=== PATIENT | male | born 1985 | race Hispanic/Latino ===

== ENCOUNTER 2020-09-30 09:46 | Day surgery (SDC) | payer SELFPAY ==
[2020-09-27 14:07] LABS: BASOPHILS % (AUTO) 0.6 % (0.0-5.0); EOSINOPHILS % (AUTO) 3.2 % (0.0-8.0); HEMATOCRIT 45.3 % (42-54); LYMPHOCYTES % (AUTO) 37.5 % (21.0-51.0); MEAN CORPUSCULAR HEMOGLOBIN 30.4 pg (27.0-33.0); MEAN CORPUSCULAR HGB CONC 33.1 g/dL (32.0-36.0); MEAN CORPUSCULAR VOLUME 91.9 fL (79-99); PLATELET COUNT (AUTO) 257 K/uL (130-400); RED BLOOD CELL COUNT(AUTO) 4.93 MIL/uL (4.50-6.20); RED CELL DISTRIBUTION WIDTH 12.3 % (11.0-15.5); WHITE BLOOD COUNT (AUTO) 6.8 K/uL (4.8-10.8)
[2020-09-27 14:09] LABS: CREATININE 0.7 mg/dL (0.5-1.5); POTASSIUM 4.5 mmol/L (3.5-5.1)
[2020-09-29 09:31] VITALS: BP 115/74
[2020-09-30] VITALS (16 sets, daily range): BP systolic 100–118; BP diastolic 61–76
[~2020-09-30] VITALS: Ht 162.6 cm; Wt 80.5 kg
[2020-09-30] MEDS ORDERED: CEFAZOLIN SODIUM 1 GM VIAL ONE (10:23)
[2020-09-30] MEDS: CEFAZOLIN SODIUM 1 GM VIAL IVP ONE ×2 (10:52→12:35)
[2020-09-30] MEDS: LACTATED RINGERS 1000ML 1,000 ML IV SCH ×3 (10:53→14:05)
[2020-09-30] MEDS ORDERED: SUCCINYLCHOLINE CHLORIDE 20 MG/ML 10 ML VIAL ONE (11:42)
[2020-09-30] MEDS ORDERED: DEXAMETHASONE SOD PHOSPHATE 4 MG/ML 1ML VIAL ONE (11:42)
[2020-09-30] MEDS ORDERED: LIDOCAINE PF 100MG/5ML (2%) SYRINGE 5ML ONE (11:42)
[2020-09-30] MEDS ORDERED: ONDANSETRON 4MG INJ ONE (11:43)
[2020-09-30] MEDS ORDERED: ROCURONIUM 10MG/1ML SYR 10 MG/ML ML ONE (11:43)
[2020-09-30] MEDS ORDERED: PROPOFOL 10 MG/ML 20ML VIAL IV ONE (11:43)
[2020-09-30] MEDS ORDERED: MIDAZOLAM HCL 1 MG/ML 2ML VIAL ONE (11:44)
[2020-09-30] MEDS ORDERED: ROPIVACAINE 0.5% 5MG/ML 30ML IJ ONE (11:46)
[2020-09-30] MEDS ORDERED: FENTANYL CITRATE PF 50 MCG/1 ML 2ML VIAL ONE (12:35)
[2020-09-30] MEDS ORDERED: PHENYLEPHRINE HCL 10 MG/ML 1ML VIAL IV ONE (13:08)
[2020-09-30] MEDS ORDERED: NEOSTIGMINE 5MG/5ML SYR IV ONE (13:38)
== END 2020-09-30 15:35 | disposition home or self-care (01) ==
LOC: DAH 09:46
PROVIDERS: ATTEND Orthopaedic Surgery
DX: M66.821 Spontaneous rupture of other tendons, right upper arm (principal); M67.813 Other specified disorders of tendon, right shoulder; Z20.822 Contact with and (suspected) exposure to COVID-19; M75.111 Incomplete rotator cuff tear or rupture of right shoulder, not specified as traumatic; E66.9 Obesity, unspecified; Z98.890 Other specified postprocedural states; Z68.30 Body mass index [BMI] 30.0-30.9, adult
CPT/HCPCS: 29822; 36415; 64415; 76942; 80048; 85025; 87635; A4222; A4223; A4565; A4600; A4649 ×3; A4663; A4930; A5120; A6207; C9803; J0330; J0690; J1100; J2001; J2250; J2370; J2405; J2704; J2710; J2795; J3010; J7120 ×2

== ENCOUNTER 2023-12-14 17:18 | Emergency (ER) | payer BC, SELFPAY ==
[~2023-12-14] VITALS: Ht 162.6 cm; Wt 85.3 kg
[2023-12-14 18:02] LABS: BASOPHILS # (AUTO) 0.04 K/uL (0.00-0.20); BASOPHILS % (AUTO) 0.5 % (0.0-5.0); EOSINOPHILS # (AUTO) 0.16 K/uL (0.00-0.70); EOSINOPHILS % (AUTO) 2.1 % (0.0-8.0); HEMATOCRIT 44.9 % (42-54); IMMATURE GRANULOCYTE ABSOLUTE 0.05 K/uL (0-1); LYMPHOCYTES # (AUTO) 2.6 K/uL (1.0-4.8); MEAN CORPUSCULAR HGB CONC 34.3 g/dL (32.0-36.0); MEAN CORPUSCULAR VOLUME 90.5 fL (79-99); MONOCYTES # (AUTO) 0.7 K/uL (0.1-1.0); MONOCYTES % (AUTO) 9.1 % (3.0-13.0); NEUTROPHILS # (AUTO) 4.2 K/uL (1.8-7.7); NEUTROPHILS % (AUTO) 53.7 % (40.0-77.0); PLATELET COUNT (AUTO) 242 K/uL (130-400); RED BLOOD CELL COUNT(AUTO) 4.96 MIL/uL (4.50-6.20); RED CELL DISTRIBUTION WIDTH 11.9 % (11.0-15.5); WHITE BLOOD COUNT (AUTO) 7.8 K/uL (4.8-10.8)
[2023-12-14] MEDS: ondanSETRON 4MG INJ IVP ONE (18:02)
[2023-12-14] MEDS: PANTOPrazole 40 MG/VIAL IVP ONE (18:02)
[2023-12-14 18:13] LABS: CREATININE 0.9 mg/dL (0.5-1.3); POTASSIUM 3.7 mmol/L (3.5-5.1)
[2023-12-14 18:17] LABS: APPEARANCE,URINE CLEAR (CLEAR); BILIRUBIN,URINE NEGATIVE (NEGATIVE); COLOR,URINE LIGHT-YELLOW (YELLOW); GLUCOSE, URINE (UA) NEGATIVE (NEGATIVE); KETONES,URINE NEGATIVE (NEGATIVE); LEUKOCYTE ESTERASE ,URINE NEGATIVE Leu/uL (NEGATIVE); NITRATE,URINE NEGATIVE (NEGATIVE); OCCULT BLOOD,URINE NEGATIVE (NEGATIVE); PROTEIN,URINE NEGATIVE (NEGATIVE); UROBILINOGEN,URINE 0.2 mg/dL (0.2-1.0)
[2023-12-14 18:17] LABS: BILIRUBIN,DIRECT 0.1 mg/dL (0.0-0.3); BILIRUBIN,TOTAL 0.3 mg/dL (0.2-1.0); TOTAL PROTEIN, SERUM 7.4 g/dL (6.0-8.3)
[2023-12-14 18:25] LABS: ADD UA MICROSCOPIC NO
[2023-12-14] MEDS ORDERED: GOLY4L PO (19:21)
[2023-12-14 19:38] VITALS: BP 124/83; PULSE 95; RESP 18; TEMP 98.5; O2SAT 99
== END 2023-12-14 19:39 | disposition home or self-care (01) ==
LOC: EDH 17:18
DX: K59.00 Constipation, unspecified (principal); R10.11 Right upper quadrant pain; Z90.89 Acquired absence of other organs; Z98.890 Other specified postprocedural states; Z88.2 Allergy status to sulfonamides
CPT/HCPCS: 99284; 96374; 80076; 80048; 83690; 85025; 81003; 36415; 74018; J2470; J2405

== ENCOUNTER 2024-01-16 15:56 | Emergency (ER) | payer BC ==
[~2024-01-16] VITALS: Ht 172.7 cm; Wt 77.1 kg
[~2024-01-16 15:56] MED LIST: GOLY4L PO
--- NOTE | 2024-01-16 16:07 | EKG ---
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
--- NOTE | 2024-01-16 16:08 | ERN ---
General Chief Complaint: Chest Wall Pain Stated Complaint: CHEST WALL PAIN Time Seen by MD: 15:58 Time Seen by Midlevel: 15:58 Source: patient History of Present Illness Initial Comments 38-year-old male who presents to the ED due to chest pain onset 3 days. States the pain comes and goes lasting a couple of seconds. Patient reports shortness of breath, pain radiating to the left arm, cough but denies any fever or further associated symptoms. Patient denies any injuries or trauma to the chest. Reports weekly alcohol consumption, and occasional vaping and cocaine use. Denies significant past medical history. Allergies: Coded Allergies: No Known Allergies (Verified Allergy, Unknown, 09/27/20) sulfamethoxazole (Unverified Allergy, Unknown, UNKNOWN, 12/14/23) trimethoprim (Unverified Allergy, Unknown, UNKNOWN, 12/14/23) Home Meds Active Scripts Peg 3350/Na Sulf,Bicarb,Cl/KCl (Golytely/Colyte Soln) 236-22.74G Soln, 240 ML PO DAILY PRN for CONSTIPATION, #4000 ML Prov:ANGELINE YBARRA MD 12/14/23 Past Medical History Past Medical History: No Pertinent History Past Surgical History: Other Surgical History Other: SHOULDER HISTORY ROS Dictation Constitutional: Negative for fever,chills, and weight loss Eyes: Negative for injury, pain,redness, and discharge ENT: Negative for injury,pain or swelling Cardiovascular: Positive for chest pain Negative for palpitations, and edema Respiratory: Positive for cough, shortness of breath Negative for wheezing, Abdomen/GI: Negative for abdominal pain, nausea, vomiting, diarrhea, and constipation Back: Negative for injury and pain : Negative for painful urination, bleeding or discharge MS/Extremity: Negative for injury and deformity Skin: Negative for rash, and discoloration Neuro: Negative for headache, weakness, numbness, tingling, and seizure Psych: Negative for suicide ideation, homicidal ideation, and hallucinations Physical Exam Physical Exam Dictation General: awake, alert, no acute distress Head/Face: Normocephalic, atraumatic Eyes: normal conjunctiva ENT: oral mucosa moist Neck: Normal range of motion Cardiovascular: RRR, normal S1/S2 Chest: No tenderness, no deformities noted Respiratory: CTAB, no respiratory distress, no rales or wheezes Skin: Warm, dry, normal turgor, no rash MS/Extremity: Pulses equal, no cyanosis, neurovascular intact, FROM Neuro: COAx4, GCS 15, no neurological deficits, normal gait Psych: Normal behavior, mood, and affect normal Results Laboratory and Microbiology Lab and Micro Result Laboratory Tests Test 01/16/24 16:35 01/16/24 17:06 White Blood Count 7.0 K/uL (4.8-10.8) Red Blood Count 5.08 MIL/uL (4.50-6.20) Hemoglobin 15.5 g/dL (14.0-18.0) Hematocrit 45.8 % (42-54) Mean Corpuscular Volume 90.2 fL (79-99) Mean Corpuscular Hemoglobin 30.5 pg (27.0-33.0) Mean Corpuscular Hemoglobin Concent 33.8 g/dL (32.0-36.0) Red Cell Distribution Width 11.9 % (11.0-15.5) Platelet Count 228 K/uL (130-400) Mean Platelet Volume 9.5 fL (7.5-10.5) Immature Granulocyte % (Auto) 0.4 % (0-1) Neutrophils (%) (Auto) 51.4 % (40.0-77.0) Lymphocytes (%) (Auto) 35.4 % (21.0-51.0) Monocytes (%) (Auto) 10.2 % (3.0-13.0) Eosinophils (%) (Auto) 2.0 % (0.0-8.0) Basophils (%) (Auto) 0.6 % (0.0-5.0) Neutrophils # (Auto) 3.6 K/uL (1.8-7.7) Lymphocytes # (Auto) 2.5 K/uL (1.0-4.8) Monocytes # (Auto) 0.7 K/uL (0.1-1.0) Eosinophils # (Auto) 0.14 K/uL (0.00-0.70) Basophils # (Auto) 0.04 K/uL (0.00-0.20) Absolute Immature Granulocyte (auto 0.03 K/uL (0-1) Nucleated Red Blood Cells 0.0 % (0.0-0.19) Sodium Level 139 mmol/L (136-145) Potassium Level 4.3 mmol/L (3.5-5.1) Chloride Level 103 mmol/L (101-111) Carbon Dioxide Level 30 mmol/L (21-32) Blood Urea Nitrogen 14 mg/dL (7-18) Creatinine 0.7 mg/dL (0.5-1.3) Glomerular Filtration Rate Calc 122 mL/min (>90) Random Glucose 95 mg/dL (70-105) Total Calcium 9.3 mg/dL (8.5-10.1) Troponin I High Sensitivity < 4 ng/L (4-75) L Influenza Type A Antigen Negative For Type A Influenza Type B Antigen Negative For Type B SARS-CoV-2 Antigen (Rapid) PRESUMPTIVE NEGATIVE Labs Reviewed?: Yes EKG/XRAY/US/CT/MRI EKG Comment Date: 01/16/2024 Time: 16:05 Rates: 75 EKG interpretation: Sinus rhythm, no STEMI, normal EKG Reviewed by ED Attending MDM MDM: Differential diagnosis: Pain, NSTEMI, gastritis, In his is a 38-year-old male coming in to be evaluated for abdominal discomfort and chest pressure. Patient states that he has been taking Enulose which is a lactose equivalent. Patient states that since then he has been having gastric distention and burping. Upon evaluation cardiac workup negative for acute find ings. Patient will be discharged with a diagnosis of gastritis. ED Course Orders Procedure Category Date Status Time Cbc With Differential LAB 01/16/24 Complete 16:03 Basic Metabolic Panel LAB 01/16/24 Complete 16:03 Urinalysis LAB 01/16/24 Logged W/Microscopic 16:03 Drug Screen Urine LAB 01/16/24 Logged 16:03 Chest 1vw RAD 01/16/24 Taken 16:03 12 Lead Ekg Tracing- EKG 01/16/24 Complete Technical 16:03 Troponin I High LAB 01/16/24 Complete Sensitivity 16:03 Covid19 (Sars Antigen LAB 01/16/24 Complete Rapid) 16:03 Influenza Type A & B, LAB 01/16/24 Complete Rapid 17:06 Vital Signs Date Time Temp Pulse Resp B/P (MAP) Pulse Ox O2 Delivery O2 Flow Rate FiO2 01/16/24 17:02 99.5 80 16 110/75 98 Room Air* 0 21 01/16/24 15:58 99.3 84 16 109/79 98 Room Air 0 DX & DISP Disposition: Discharge Departure Impression: Primary Impression: Gastritis Additional Impression: Medication side effect Condition: Stable Scripts Pantoprazole Sodium (Protonix) 40 Mg Ectab 1 TAB PO DAILY for 30 Days, #30 TAB 0 Refills Prov: KYLE SINGH MD 01/16/24 Additional Instructions: You have been reviewed in the emergency department at [facility] after presenting with chest pain. After considering your history, your risk factors, your EKG and your blood test troponins, have been found to be at very low risk less than (1 in 100) of having a major adverse cardiac event (like heart attack) in the near future. In the " low risk" group, the risks of doing further tests and treatment as the inpatient outweighs the benefits. In many patients in the low risk group for the test of any sort or unnecessary, however he should discuss this further with his general practitioner who will understand the medical and personal backgrounds better. Because we have never declared yo u" no risk" we would suggest. 1 returning for medical review if you have further episodes of chest pain/arm pain or other concerning symptoms like dizziness, collapse, palpitations or shortness of breath. 2. Following up with your local doctor who will consider the need for further testing and will also ensure that any modifiable risk factors you may have for heart disease are optimally managed. Patient will be discharged in stable condition at the moment discharge patient states , no chest pain Referrals: EULALIO JOHNSON (PCP) Time of Disposition: 18:36 MANDI SCHWARTZ Jan 16, 2024 16:07 KYLE SINGH MD Jan 16, 2024 18:18
[2024-01-16 16:45] LABS: BASOPHILS # (AUTO) 0.04 K/uL (0.00-0.20); BASOPHILS % (AUTO) 0.6 % (0.0-5.0); EOSINOPHILS # (AUTO) 0.14 K/uL (0.00-0.70); HEMATOCRIT 45.8 % (42-54); IMMATURE GRANULOCYTE ABSOLUTE 0.03 K/uL (0-1); LYMPHOCYTES # (AUTO) 2.5 K/uL (1.0-4.8); LYMPHOCYTES % (AUTO) 35.4 % (21.0-51.0); MEAN CORPUSCULAR HEMOGLOBIN 30.5 pg (27.0-33.0); MEAN CORPUSCULAR HGB CONC 33.8 g/dL (32.0-36.0); MEAN CORPUSCULAR VOLUME 90.2 fL (79-99); MONOCYTES # (AUTO) 0.7 K/uL (0.1-1.0); MONOCYTES % (AUTO) 10.2 % (3.0-13.0); NEUTROPHILS # (AUTO) 3.6 K/uL (1.8-7.7); NEUTROPHILS % (AUTO) 51.4 % (40.0-77.0); PLATELET COUNT (AUTO) 228 K/uL (130-400); RED BLOOD CELL COUNT(AUTO) 5.08 MIL/uL (4.50-6.20); RED CELL DISTRIBUTION WIDTH 11.9 % (11.0-15.5)
[2024-01-16 16:53] LABS: CREATININE 0.7 mg/dL (0.5-1.3); POTASSIUM 4.3 mmol/L (3.5-5.1)
[2024-01-16 17:02] VITALS: BP 110/75; PULSE 80; RESP 16; TEMP 99.5; O2SAT 98
[2024-01-16 17:49] LABS: COVID19 (SARS ANTIGEN RAPID) PRESUMPTIVE NEGATIVE (NEGATIVE)
[2024-01-16 18:15] LABS: INFLUENZA TYPE A Negative For Type A (NEGATIVE); INFLUENZA TYPE B Negative For Type B (NEGATIVE)
[2024-01-16] MEDS ORDERED: PANT40TA55 PO (18:37)
--- NOTE | 2024-01-16 21:54 | HMCIMG ---
CHEST 1VW CLINICAL HISTORY: Chest pain COMPARISON: None TECHNIQUE: Single view of the chest was obtained. FINDINGS: Lungs are clear. The cardiac size and mediastinum are unremarkable. There are 2 screws demonstrated within the left glenoid. IMPRESSION: No acute cardiopulmonary process identified.
== END 2024-01-16 19:01 | disposition home or self-care (01) ==
LOC: EDH 15:56
DX: K29.70 Gastritis, unspecified, without bleeding (principal); Z88.1 Allergy status to other antibiotic agents; Z88.2 Allergy status to sulfonamides; Z20.822 Contact with and (suspected) exposure to COVID-19
CPT/HCPCS: 36415; 71045; 80048; 84484; 85025; 87426; 87804; 93005; 99284